=== PATIENT | female | born 1970 | race Caucasian/White ===

== ENCOUNTER 2016-09-09 09:45 | Day surgery (SDC) | payer OTHER ==
[2016-09-09] VITALS (15 sets, daily range): BP systolic 95–120; BP diastolic 58–73; PULSE 44–60; RESP 10–24; Ht 167.6 cm; Wt 96.3 kg
[~2016-09-09] VITALS: Ht 167.6 cm; Wt 96.3 kg
[2016-09-09] MEDS ORDERED: SOD CHLORIDE 0.9% 1,000 ML IV SCH (10:30)
[2016-09-09] MEDS ORDERED: CEFAZOLIN 2 GM/50 ML (PMX) 50 ML IVPB ONE (10:30)
[2016-09-09 11:00] LABS: ADD SCAN DIFF NO
[2016-09-09 11:17] LABS: BASOPHILS % 0.9 % (0.0-2.0); EOSINOPHILS # 0.2 10^3/ul (0.0-0.5); EOSINOPHILS % 4.1 % (0.0-7.0); HEMATOCRIT 39.4 % (37.0-47.0); HEMOGLOBIN 13.3 g/dl (12.0-16.0); LYMPHOCYTES # 1.9 10^3/ul (0.8-2.9); LYMPHOCYTES % 41.4 % (15.0-51.0); MEAN CORPUSCULAR HEMOGLOBIN 30.2 pg (29.0-33.0); MEAN CORPUSCULAR HGB CONC 33.8 g/dl (32.0-37.0); MEAN CORPUSCULAR VOLUME 89.5 fl (82.0-101.0); MEAN PLATELET VOLUME 11.5 fl (7.4-10.4); MONOCYTE # 0.4 10^3/ul (0.3-0.9); MONOCYTES % 8.7 % (0.0-11.0); NEUTROPHIL # 2.1 10^3/ul (1.6-7.5); NEUTROPHILS % 44.7 % (39.0-77.0); PLATELET COUNT 239 10^3/UL (140-415); RED CELL DISTRIBUTION WIDTH 12.9 % (11.5-14.5); WHITE BLOOD COUNT 4.7 10^3/ul (4.8-10.8)
[2016-09-09 11:36] LABS: ALBUMIN 4.7 g/dl (3.3-4.9); ALBUMIN/GLOBULIN RATIO 1.88; BILIRUBIN,INDIRECT 0.2 mg/dl (0-1.1); BILIRUBIN,TOTAL 0.2 mg/dl (0.2-1.3); TOTAL PROTEIN 7.2 g/dl (6.1-8.1)
[2016-09-09 11:37] LABS: CREATININE 0.67 mg/dl (0.44-1.00); INR 0.88; POTASSIUM 4.2 mmol/L (3.5-5.1); PROTIME 11.9 Sec (12.2-14.2); PT RATIO 0.9
[2016-09-09 11:39] LABS: PARTIAL THROMBOPLASTIN TIME 25.3 Sec (25.0-35.0)
[2016-09-09] MEDS ORDERED: PROPOFOL 60 ML ONE (13:06)
[2016-09-09] MEDS ORDERED: FENTAnyl 50 MCG/ML VIAL ONE (13:13)
[2016-09-09] MEDS ORDERED: MEPERIDINE 25 MG INJ IV PRN (13:30)
[2016-09-09] MEDS ORDERED: DIPHENHYDRAMINE 50 MG INJ IV PRN (13:30)
[2016-09-09] MEDS ORDERED: LABETALOL HCL 20MG INJ IV PRN (13:30)
[2016-09-09] MEDS ORDERED: EPHEDrine SULFATE 50 MG/5 ML SYG IV PRN (13:30)
[2016-09-09] MEDS ORDERED: OXYCODONE/ACETAMINOPHEN (5/325) TAB PO PRN ×2 (13:30)
[2016-09-09] MEDS ORDERED: ONDANSETRON 4 MG INJ IV PRN (13:30)
[2016-09-09] MEDS ORDERED: hydrALAzine 20 MG INJ IV PRN (13:30)
[2016-09-09] MEDS ORDERED: FENTAnyl 50 MCG/ML VIAL IV PRN ×3 (13:30)
[2016-09-09] MEDS ORDERED: CEFAZOLIN 1 GM INJ ONE (13:39)
[2016-09-09] MEDS ORDERED: LIDOCAINE 2% (SDV) 5 ML INJ ONE (13:39)
[2016-09-09] MEDS ORDERED: DEXAMETHASONE 4 MG/ML 1 ML INJ ONE (13:40)
[2016-09-09] MEDS ORDERED: ONDANSETRON 4 MG INJ ONE (14:13)
--- NOTE | 2016-09-15 13:02 | OPR ---
DATE OF OPERATION: 09/09/2016 PREOPERATIVE DIAGNOSIS: Right breast lesion with atypia. POSTOPERATIVE DIAGNOSIS: Right breast lesion with atypia. OPERATION PERFORMED: Excision of right breast lesion. ANESTHESIA: General. ANESTHESIOLOGIST: Dr. Farr. SURGEON: Jarrett Palencia MD AERONAUTICAL ENGINEERING PROFESSOR: Cleveland Torres MD INDICATIONS: The patient is a 45-year-old female who underwent surveillance mammography. She was found to have a suspicious lesion in her right breast. 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 A complete excisional biopsy was recommended. The patient consented and was scheduled for surgery. DESCRIPTION OF PROCEDURE: The patient was brought to the operating theater and placed under general anesthesia. The right breast was prepped and draped in the usual sterile fashion. The lesion, which was palpable was identified. An approximately 3 to 4 incision was made over the lesion with 15 blade scalpel. Subcutaneous tissue was dissected with cautery. The skin edges were then elevated with skin hooks and wide circumferential dissection of the tissue took place using cautery. The specimen was elevated, transected, oriented, and then sent for radiographic confirmation of capture of the previously placed biopsy clip. Capture was confirmed. The specimen was then sent for permanent pathologic analysis. The wound was irrigated. Minimal bleeding was controlled with cautery. The skin was then closed with 4-0 Vicryl sutures in deep dermal interrupted fashion, followed by final skin approximation with 5-0 PDS suture in subcuticular fashion. Benzoin and Steri-Strips were then applied. The patient tolerated the procedure well. ESTIMATED BLOOD LOSS: 10 mL COMPLICATIONS: There were no complications. DISPOSITION: The patient was transported in stable condition to the recovery room. Dictated By: Jarrett Palencia MD /daniel/jose miguel /Document#: [id number]
== END 2016-09-09 16:55 | disposition home or self-care (01) ==
LOC: SDS 09:45
PROVIDERS: ATTEND Surgery Surgical Oncology
DX: N60.21 Fibroadenosis of right breast (principal); M19.90 Unspecified osteoarthritis, unspecified site; E03.9 Hypothyroidism, unspecified; Z86.11 Personal history of tuberculosis
CPT/HCPCS: 19120; 80053; 84703; 85025; 85610; 85730; 88307; J0690; J1100; J2405; J3010